=== PATIENT | male | born 1985 | race Caucasian/White ===

== ENCOUNTER 2021-03-17 16:18 | Emergency (ER) | payer SELFPAY ==
[~2021-03-17] VITALS: Ht 167.6 cm; Wt 72.6 kg
--- NOTE | 2021-03-17 16:20 | NUR ---
Dr Lopez at bedside for MSE
[2021-03-17] MEDS ORDERED: NAPR500T6 PO ×2 (17:05→17:06)
[2021-03-17 17:10] VITALS: BP 132/79
--- NOTE | 2021-03-17 17:11 | NUR ---
Patient discharged to home in stable condition. Written and verbal after care instructions given. Patient verbalizes understanding of instructions. Stressed follow up or return to ER for worsening s/s.
== END 2021-03-17 17:12 | disposition home or self-care (01) ==
LOC: ER 16:20
DX: R51.9 Headache, unspecified (principal); R03.0 Elevated blood-pressure reading, without diagnosis of hypertension
CPT/HCPCS: 70450; A4663